=== PATIENT | female | born 1970 | race Caucasian/White ===

== ENCOUNTER 2016-12-16 05:17 | Inpatient (IN) | payer MEDICAID ==
[2016-12-15 16:10] LABS: BASOPHILS 0.3 % (0.0-2.0); EOSINOPHILS 0.5 % (0-7); HEMATOCRIT 38.9 % (36.0-48.0); HEMOGLOBIN 13.1 g/dL (12-16); IMMATURE GRANULOCYTES 0.2 % (0-5); LYMPHOCYTES 49.3 % (15-50); MCH 31.3 pg (26.0-34.0); MCHC 33.7 g/dL (31.0-37.0); MCV 93.1 fL (80.0-100.0); MEAN PLATELET VOLUME 9.7 fL (7.4-10.4); MONOCYTES 4.8 % (2-11); NEUTROPHILS 44.9 % (40-80); PLATELET COUNT 311 10x3/uL (130-400); RBC 4.18 10x6/uL (4.00-5.40); RDW 12.7 % (11.5-14.5); WBC 12.2 10x3/uL (4.8-10.8)
[2016-12-15 16:18] LABS: CALC OSMOLALITY 277 mosm/kg (275-300); CALCIUM 8.9 mg/dL (8.5-10.1); CHLORIDE - SERUM 104 mmol/L (98-107); CREATININE - SERUM 0.8 mg/dL (0.6-1.3); GLUCOSE 94 mg/dL (74-106); POTASSIUM - SERUM 4.1 mmol/L (3.5-5.1); SODIUM 140 mmol/L (136-145); UREA NITROGEN 9 mg/dL (7-18); eGFR NON AFRICAN AMERICAN 81 mL/min (90-120)
[2016-12-15 16:36] LABS: APPEARANCE CLEAR (CLEAR); BILIRUBIN NEGATIVE (NEGATIVE); COLOR YELLOW (YELLOW); GLUCOSE NEGATIVE (NEGATIVE); KETONE NEGATIVE (NEGATIVE); LEUKOCYTE ESTERASE NEGATIVE (NEGATIVE); NITRITE NEGATIVE (NEGATIVE); PROTEIN NEGATIVE (NEGATIVE); UROBILINOGEN NORMAL (NORMAL)
[2016-12-16] VITALS (11 sets, daily range): BP systolic 116–141; BP diastolic 73–97; Ht 162.6 cm; Wt 73.5 kg
[~2016-12-16] VITALS: Ht 162.6 cm; Wt 73.5 kg
[~2016-12-16 05:17] MED LIST: HYDROCODONE-APA1 TAB PO; NEURONTIN800 MG PO; ROBAXIN-750750 MG PO
[2016-12-16] MEDS ORDERED: MAXALT10 MG PO (06:17)
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
--- NOTE | 2016-12-16 11:15 | NUR ---
PT ARRIVED TO ICU VIA STRETCHER ACCOMPANIED BY RN. PT IS ALERT AND ORIENTED X 4. PT HAS DRSG CDI TO ANTERIOR PORTION OF NECK. PT HAS RUTHIE DRAIN TO LEFT NECK WITH SCANT BLOODY OUTPUT. PT ATTACHED TO MONITOR. ALL VSS. NEURO INTACT. PMS INTACT IN ALL EXTREMITIES. WILL MONITOR.
--- NOTE | 2016-12-16 12:42 | NUR ---
PT STATES SHE NEED TO PEE. PT PLACED IN SOFT C-COLLAR AND ASSISTED TO BEDSIDE COMMODE WITHOUT DIFFICULTY. NEURO CHECKS REMAIN INTACT. SOME SWELLING NOTED TO ANTERIOR NECK. RUTHIE DRAIN INTACT, OUTPUT IS BLOODY, ACCEPTABLE.
--- NOTE | 2016-12-16 13:57 | NUR ---
* Is the patient Alert and Oriented? Yes 0 * How many steps to enter\exit or inside your home? 2/RAIL 0 * PCP DR ESPINAL 0 * Pharmacy [facility] OR [facility] 0 * Preadmission Environment Home with Family 0 * ADLs Independent 0 * Equipment None 0 * List name and contact numbers for known caregivers / representatives who currently or will assist patient after discharge: S/O DAVID LUCAS [phone] 0 * Community resources currently utilized None 0 * Additional services required to return to the preadmission environment? No 0 * Can the patient safely return to the preadmission environment? Yes 0 * Has this patient been hospitalized within the prior 30 days at any hospital? No PATIENT STATES SHE LIVES AT HOME WITH HER S/O, DAVID. SHE STATES DAVID WILL DRIVE HER HOME AT DISCHARGE. SHE STATES HER PCP IS DR. ESPINAL. SHE STATES THAT SHE GETS HER MEDS FROM [facility] AND IF AFTER HOURS SHE GETS THEM FROM [facility]. PATIENT DENIES EVER HAVING HOME HEALTH AND DENIES USE OF ANY DME. PATIENT STATES THERE ARE 2 STEPS WITH A RAIL TO ENTER HER HOME. NO DISHCARGE NEEDS IDENTIFIED AT THIS TIME.
--- NOTE | 2016-12-16 17:05 | NUR ---
PT RESTS QUIETLY AT THIS TIME. NEURO REMAINS INTACT. PT USES SOFT COLLAR UPON AMBULATION. PT TOLERATING CLEAR LIQUIDS WELL. VSS.
--- NOTE | 2016-12-16 18:17 | NUR ---
PT IN TEARS C/O 10/10 LEFT SIDED NECK PAIN. WILL PROVIDED MORE PRN MEDICATIONS ALLOWED. NECK IS SUPPLE TO PALPATION, EVEN TO BOTH SIDES POSTERIOR AND ANTERIOR. LITTLE OUTPUT NOTED TO RUTHIE DRAIN. WILL MONITOR.
--- NOTE | 2016-12-16 19:00 | NUR ---
PT AOX4, PERRLA. STEADY GAIT, REPOSITIONS SELF INDEPENDENTLY. VSS, NO S/S OF ACUTE DISTRESS. NECK WITH DSG CDI, LT NECK WITH RUTHIE INTACT, MINIMAL BLOODY DRAINAGE PRESENT. VOICES NO NEEDS AT THIS TIME. CALL LIGHT AND BEDSIDE TABLE WITHIN PT REACH. CPOC.
--- NOTE | 2016-12-16 21:00 | NUR ---
FAMILY AT BEDSIDE, UPDATE GIVEN AND QUESTIONS ANSWERED. VSS.
--- NOTE | 2016-12-16 23:00 | NUR ---
REASSESSMENT COMPLETE, SEE FLOWSHEET FOR ALL FINDINGS. NO ACUTE CHANGES NOTED AT THIS TIME. VSS. FRESH WATER TO BEDSIDE. NECK DSG CDI. CALL LIGHT AND BEDSIDE TABLE WITHIN PT REACH. CPOC.
[2016-12-17] VITALS (7 sets, daily range): BP systolic 90–120; BP diastolic 51–74
--- NOTE | 2016-12-17 03:00 | NUR ---
REASSESSMENT COMPLETE, SEE FLOWSHEET FOR ALL FINDINGS. NO ACUTE CHANGES AT THIS TIME. PT SLEEPING QUIETLY WITH VSS. CALL LIGHT AND BEDSIDE TABLE WITHIN PT REACH. CPOC.
--- NOTE | 2016-12-17 05:00 | NUR ---
NO ACUTE CHANGES AT THIS TIME. VSS, PT AOX4. REPOSITIONS SELF INDEPENDENTLY. CALL LIGHT AND BEDSIDE TABLE WITHIN PT REACH. CPOC
--- NOTE | 2016-12-17 07:03 | OP ---
PATIENT NAME: DOMI IRVIN MEDICAL RECORD: [id number] :66 LOCATION:[facility] D.2312 ADMISSION DATE:12/16/16 SURGEON: ORLANDO DICKSON MD DATE OF OPERATION: 12/16/2016 PREOPERATIVE DIAGNOSIS: C4, C5 radiculopathy. POSTOPERATIVE DIAGNOSIS: C4, C5 radiculopathy. PROCEDURE PERFORMED: Anterior approach to the cervical spine for: 1. Anterior interbody arthrodesis with endplate preparation at C3-C4 and C4-C5. 2. Anterior plate fixation C3 through C5 with bilateral vertebral body screws. 3. Application of intervertebral biomechanical devices at C3-C4 and C4-C5. 3. Discectomy and bilateral foraminotomies at C3-C4 and C4-C5: 4. Use of intraoperative microscope with microdissection techniques. IMPLANTS: 1. Alphatec anterior cervical set. 2. Trestle Luxe plate 30 mm in length. 3. A 16-mm variable angle screws at C3 and C4 bilaterally. 4. A 16-mm fixed angle screws at C5 bilaterally. 5. An 8-mm medium PEEK cage packed with DBX allograft at C3-C4. 6. A 7-mm medium PEEK cage packed with DBX allograft at C4-C5. COMPLICATIONS: None apparent. FINDINGS: No changes in SSEP neuromonitoring throughout the procedure. SPECIMENS: None. COMPLICATIONS: None apparent. HISTORY OF PRESENT ILLNESS: Domi Irvin is a pleasant 46-year-old female, who presented as an outpatient with significant progressive symptoms consistent with C4 and C5 radiculopathy, which was refractory to conservative therapy. I had an extensive discussion with her regarding her imaging findings and her options for continued conservative therapy versus operative intervention as well as the risks and benefits of both courses of action. She ultimately decided to undergo operative intervention in the form of C3 through C5 ACDF, which was explained to her in detail including the intraoperative details as well as postoperative course. All of her questions were answered and she freely consented to go forward with the surgery. DESCRIPTION OF THE PROCEDURE: Domi Irvin was identified by the anesthesia team and transported to the operative theater. She was gently transferred over to a supine position on the operative table where general endotracheal anesthesia commenced and all appropriate lines and tubes were placed. A gel bump was placed underneath her scapula. Her head was placed in extension. Anterior neck was prepped and draped in the usual standard fashion. Using lateral fluoroscopy, an incision was localized. A timeout was performed prior to the initiation of the procedure and agreed to by those present. The patient did receive IV antibiotics as well as IV dexamethasone (10 mg) prior to the start of the procedure. Local anesthetic was infiltrated in the dermal space and a 10 blade was used to carry the level of incision down to the subcutaneous space. Bovie electrocautery was used to transect the platysma. The plane between the OPERATIVE REPORT [id number] DOMI IRVIN tracheoesophageal bundle medially and the carotid bundle laterally was identified and developed with blunt dissection. Curved Metzenbaum scissors were previously used to undermine the platysma rostrally and caudally. Curved Metzenbaum scissors were used to open the prevertebral fascia and further blunt dissection exposed the C4-C5 at C3-C4 disc spaces. These were confirmed on the lateral fluoroscopy. Low power Bovie electrocautery was used to clean off the inferior portion of the C3 vertebral body, the entire C4 vertebral body and the superior portion of C5 vertebral body as well as to elevate the longus colli bilaterally. Trimline self-retaining retractors were then seated deep to the longus colli, adjacent to the C3-C4 disc space. After the retractors were seated, the endotracheal cuff was let down and reinflated at a lower pressure. Square cut was made in the disc and pituitaries were used to perform initial discectomy. Hartford pins were placed under lateral fluoroscopy at C3 and C4 and the microscope was brought in the field. Gentle Hartford distraction was deployed and discectomy proceeded with a combination a lawrence elevator, curettes, Kerrison rongeurs and pituitary rongeurs. The PLL was taken down and bilateral foraminotomies were performed and found to be satisfactory when interrogated with a blunt nerve hooks. Surgiflo hemostatic matrix was used to control small amount of epidural hemorrhage, which was subsequently rinsed away and no further hemorrhage was appreciated. Ultimately, an 8 mm trial was placed at C3-C4 and found to be appropriate under fluoroscopy. Cage of the same size was packed with DBX allograft and inserted under lateral fluoroscopy to the appropriate position. Hartford pin at C3 was removed and the bony defect was filled with DBX allograft and no hemorrhage was appreciated. The Hartford pin was then placed at C5 under lateral fluoroscopy after the self-retaining retractors were reseated adjacent to the C4-C5 disc space. A square cut was made in the disc and initial discectomy performed. The Hartford distraction was then again used for gentle distraction. The C4-C5 discectomy and bilateral foraminotomies proceeded in the exact same sequence. PLL was again taken down and biforaminal decompression was confirmed with a blunt nerve hook. Small amount of epidural hemorrhage was controlled with Surgiflo hemostatic matrix and subsequently rinsed away with no further hemorrhage appreciated. A 7-mm trial was laid into place and found to be satisfactory under fluoroscopy. A same sized cage was subsequently packed with DBX allograft and then inserted under lateral fluoroscopy to the appropriate position. Hartford pins were sequentially removed with DBX allograft using to fill the bony defects. A 30 mm anterior cervical plate was then laid into place and found to be the appropriate size under fluoroscopy. Using the drill guide with a 10 mm drill, the C4 vertebral body drill tracks were developed and 16-mm variable angle screws were inserted under lateral fluoroscopy. The process was repeated at the C5 vertebral body with a 16-mm fixed angled screws. The same process was then repeated for C3 body with bilateral 16-mm variable angle screws being placed here. The screws were deep into the final position to activate the locking mechanism, which was double checked at all 3 levels to be deployed. Significant amount of irrigation was then irrigated into the operative tract. There was no significant hemorrhage. The self-retaining retractors were removed and again, the irrigation was used. Again, there was no significant hemorrhage appreciated. A 10-Uruguayan round drain was tunneled away from the incision, cut to size and laid over the plate. The platysma was reapproximated with interrupted 3-0 Vicryl sutures. The skin was reapproximated with a running subcuticular 4-0 Monocryl. The drain was sutured in place with a 3-0 Vicryl. The area was cleaned with a wet and dry dressing and Dermabond skin glue was placed over the incision. The patient was then returned to the anesthesia team for reversal and extubation. She tolerated the procedure well without any apparent complications. There were no changes in SSEP neuro monitoring throughout the procedure. All sponge and needle counts OPERATIVE REPORT [id number] DOMI IRVIN were correct times 2 at the end of the case. I did update the patient's family immediately postoperatively in the waiting room and all their questions were answered. TRANSINT:[id number] Voice Confirmation ID: [id number] DOCUMENT ID: [id number] ORLANDO DICKSON MD at 0703 CC: [id number] DICTATION DATE: 12/16/16 1003 RESISTANCE WELDING MACHINE OPERATOR: 12/16/16 1255 ADM IN [id number] [place] [address]
[2016-12-17] MEDS ORDERED: VALIUM5 MG PO (07:07)
[2016-12-17] MEDS ORDERED: HYDROCODON-ACE1 EAC7 PO (07:07)
--- NOTE | 2016-12-17 08:15 | NUR ---
0815- DC ORDERS NOTED, JESUS PAGED AND DID RECEIVE ORDERS TO DC RUTHIE DRAIN.
== END 2016-12-17 09:39 | disposition home or self-care (01) | DRG 473 ==
LOC: D.SDCHOLD 05:17 → D.ICU 05:17 → D.SDCHOLD 07:30 → D.ICU 10:52
PROVIDERS: ADMIT Neurological Surgery
PROC: 0RG20K0 Fusion of 2 or more Cervical Vertebral Joints with Nonautologous Tissue Substitute, Anterior Approach, Anterior Column, Open Approach (ICD-10-PCS; 2016-12-16)
PROC: 0RB30ZZ Excision of Cervical Vertebral Disc, Open Approach (ICD-10-PCS; 2016-12-16)
PROC: 0RG20A0 Fusion of 2 or more Cervical Vertebral Joints with Interbody Fusion Device, Anterior Approach, Anterior Column, Open Approach (ICD-10-PCS; principal; 2016-12-16 07:30)
DX: M50.121 Cervical disc disorder at C4-C5 level with radiculopathy (principal); F17.200 Nicotine dependence, unspecified, uncomplicated

== ENCOUNTER 2017-08-30 06:29 | Day surgery (SDC) | payer MEDICAID ==
[~2017-08-30 06:29] MED LIST changes: +BUPROPION HCL100 M1 PO; +HYDROCODON-ACE1 EAC7 PO; +MAXALT10 MG PO; +SKELAXIN800 MG PO; +VALIUM5 MG PO
[2017-08-30 07:41] LABS: HEMATOCRIT 37.7 % (36.0-48.0); HEMOGLOBIN 12.7 g/dL (12-16); MCH 31.4 pg (26.0-34.0); MCHC 33.7 g/dL (31.0-37.0); MCV 93.3 fL (80.0-100.0); MEAN PLATELET VOLUME 9.5 fL (7.4-10.4); RBC 4.04 10x6/uL (4.00-5.40); WBC 9.6 10x3/uL (4.8-10.8)
[2017-08-30 08:23] VITALS: BP 114/70; BMI 24.9
--- NOTE | 2017-08-30 17:13 | HP ---
PATIENT: DOMI GERMAN MEDICAL RECORD: [id number] ACCOUNT: [id number] LOCATION:D.[facility] : 66 ADMISSION DATE: 08/30/17 HISTORY AND PHYSICAL EXAMINATION Preoperative History and Physical HISTORY OF PRESENT ILLNESS: Domi is a 47-year-old female with a long history of chronic otitis media and draining perforation on the right ear. The drainage has recently cleared up after treatment. The perforation has been clean and dry for few months now. She is being admitted for right tympanoplasty. PAST SURGICAL HISTORY: Cervical fusion in December 2016. SOCIAL HISTORY: She is a smoker. CURRENT MEDICATIONS: Gabapentin, Wellbutrin, and [place]. ALLERGIES: TO COMPAZINE. PHYSICAL EXAMINATION: GENERAL: Healthy-appearing female, alert and oriented, developmentally normal. FACE: Normal, symmetric, no lesions. EYES: Sclerae and conjunctivae are normal. EARS: Left ear is normal. The right ear, she has got an anterior central TM perforation with some granular myringitis and mucosal changes on the lateral aspect of the TM around the perforation. NOSE: No mass, polyps or drainage. ORAL CAVITY AND OROPHARYNX: Tongue protrudes to midline. Pharynx is normal. NECK: No masses. No adenopathy. CHEST: Clear. CARDIOVASCULAR: Regular rate and rhythm. No murmur. EXTREMITIES: Normal. IMPRESSION: Right chronic tympanic membrane perforation. PLAN: Right tympanoplasty. TRANSINT:[id number] Voice Confirmation ID: [id number] DOCUMENT ID: [id number] KANDIS POSEY MD at 1713 CC: [id number] DICTATION DATE: 08/27/17917 PROFESSOR OF FLORICULTURE: 08/27/17 1036 [facility] 08/30/[id number] [place] [address]
--- NOTE | 2017-08-30 17:13 | OP ---
PATIENT NAME: SVETLANA GERMAN MEDICAL RECORD: [id number] :66 LOCATION:D[facility] ADMISSION DATE: SURGEON: NEGRO POSEY MD DATE OF OPERATION: 08/30/2017 PREOPERATIVE DIAGNOSIS: Right chronic otitis media with perforation. POSTOPERATIVE DIAGNOSIS: Right chronic otitis media with perforation. PROCEDURE: Right tympanoplasty. SURGEON: Negro Posey MD ANESTHESIA: General orotracheal. BLOOD LOSS: 1 cc. SPECIMENS: None. COMPLICATIONS: None. DISPOSITION: Recovery stable. DESCRIPTION OF PROCEDURE: She was brought to the operating room and placed in supine position, sedated and intubated by anesthesia. Head was turned to the left. The right ear was examined using a myringotomy set. The ear was cleaned with alcohol. The postauricular area was injected with 0.5 cc of 1% lidocaine with 1:100,000 epinephrine with a long 27-gauge needle. The canal was examined. Cerumen was cleaned with a curette and alligator forceps. The canal was injected with again less than 0.5 cc, 1% lidocaine with 1:100,000 epinephrine on a long 27-gauge needle. Some crusting was cleaned off the tympanic membrane. A straight pick was used to perforate the circumference of the perforation and removed. The epithelial lining of the perforation was cleaned up. It was rinsed with Betadine on suction and repeatedly irrigated with saline as the canal was cleaned up. Once that was done, the right face and ear were prepped and draped in the usual sterile fashion with Betadine. Then, a 15 blade was used to make an incision behind the right ear. This was taken down, graft was dissected out sharply with a 15 blade and a freer elevator. That was cleaned up and trimmed to size with the scissors and a 15 blade. The TM was again examined. The edges were cleaned up and the graft was positioned nicely. Once the graft was in position, the Gelfoam was packed on top of the tympanic membrane and soaked with some Floxin drops and the postauricular incision was closed with interrupted subcutaneous 5-0 Vicryl. A cotton ball was placed in the ear, she was awakened, extubated, and transported to recovery in good condition. No complications. TRANSINT:[id number] Voice Confirmation ID: [id number] DOCUMENT ID: [id number] OPERATIVE REPORT [id number] SVETLANA GERMAN ERIC MD at 1713 CC: [id number] DICTATION DATE: 08/30/17 1113 AIR HAMMER OPERATOR: 08/30/17 1201 [facility] 08/30/17 [address] [place] [address]
[2017-11-18] MEDS ORDERED: HYDROCODONE-APA1 TAB PO (11:55)
== END 2017-08-30 12:40 | disposition home or self-care (01) ==
LOC: D.OPS 06:29 → D.PAN 10:00 → D.OPS 10:00
PROVIDERS: Anesthesiology
DX: H66.91 Otitis media, unspecified, right ear (principal); H72.91 Unspecified perforation of tympanic membrane, right ear; F17.200 Nicotine dependence, unspecified, uncomplicated; Z98.1 Arthrodesis status; Z79.891 Long term (current) use of opiate analgesic; Z79.899 Other long term (current) drug therapy; Z88.8 Allergy status to other drugs, medicaments and biological substances; Z01.812 Encounter for preprocedural laboratory examination

== ENCOUNTER 2017-11-19 05:35 | Day surgery (SDC) | payer MEDICAID ==
[2017-11-18 12:40] LABS: HEMATOCRIT 37.9 % (36.0-48.0); MCH 32.3 pg (26.0-34.0); MCHC 34.3 g/dL (31.0-37.0); MCV 94.3 fL (80.0-100.0); MEAN PLATELET VOLUME 9.2 fL (7.4-10.4); RBC 4.02 10x6/uL (4.00-5.40); RDW 12.8 % (11.5-14.5); WBC 9.1 10x3/uL (4.8-10.8)
[~2017-11-19] VITALS: Ht 162.6 cm; Wt 66.2 kg
--- NOTE | ~2017-11-19 | OP ---
PATIENT NAME: SVETLANA IRVIN MEDICAL RECORD: [id number] :66 LOCATION:D.OPS ADMISSION DATE: SURGEON: IGNACIO WEN DO DATE OF OPERATION: 11/19/2017 PROCEDURE PERFORMED: Right shoulder arthroscopy with subacromial decompression and mini open biceps tenodesis and rotator cuff repair. PREOPERATIVE DIAGNOSES: Right shoulder rotator cuff repair, SLAP tear, and subacromial impingement. POSTOPERATIVE DIAGNOSES: Right shoulder rotator cuff repair, SLAP tear, and subacromial impingement. INDICATIONS: Ms. Irvin is a 47-year-old female whom I saw approximately 2 months ago in the clinic and she had an MRI, which showed the tear. She had shoulder pain for quite some time with weakness and problems with that. She had an MRI, which showed the tear and some degenerative changes of the labrum. This was explained to her that she would probably get it fixed. She wants to wait until after The First of Year to get it done, but it was up to her, so she decided to get it done today. DESCRIPTION OF PROCEDURE: The patient was given a block in the preoperative area by anesthesia and taken to the operative suite in left lateral recumbent position, axillary rolls placed into the axilla and she was given general anesthetic, 900 mg of clindamycin and intubated. Once this was done, the right upper extremity was prepped and draped in sterile fashion. A timeout was performed and everyone was in agreement of correct side, site, and patient. The procedure then commenced with injecting 60 mL of normal saline through the posterior portal into the shoulder joint itself. Then, the posterior portal was established. Trocar was entered into the shoulder joint and scope began. Anterior portal was then established. The rotator cuff tear on the supraspinatus was noted. Pictures were taken. The SLAP tear was also seen. On her MRI, it showed the biceps was subluxing due to partial tear of the subscapularis. This was seen, but not treated due to the fact that a majority of the subscapularis tendon was intact. In fact, there was some fraying on the bicep tendon as well. The bicep tendon was then tenotomized and the subacromial space was entered. Subacromial decompression was done after establishing a lateral portal. Then, we opened to do the rotator cuff repair. Greater tuberosity was burred down with the shaver in order to decorticate and get some bone bleeding in preparation for the tendon be repaired. Two anchors were then used right in the subchondral surface and were put through the tendon and then crossed and laid down, 1 anterior and 1 posterior and then the lateral row was placed, 1 anterior and 1 posterior. They were crossed and put down, seemed to have a very nice repair of the rotator cuff. The attention was then drawn to the bicep tendon. An incision was made just over the anterior humerus just below the pec insertion. Careful dissection was made down to the biceps tendon itself, was taken out of the skin and clamped with an Allis and then whipstitched. Once the whipstitch was done, the sutures ran through the button, a unicortical hole was made through the anterior humerus, the button was put into the hole and then flipped and the biceps tendon was cinched down using solid motion of the sutures. Then a free needle was used and one of the limbs of the sutures was put through the bicep tendon itself and tied down and the excess tendon and sutures were cut at that time. All the wounds were thoroughly irrigated. The anterior and posterior portals were closed with 4-0 Monocryl in OPERATIVE REPORT [id number] SVETLANA IRVIN inverted interrupted fashion. The deltoid fascia was closed with 0 Vicryl in a [id number] fashion just approximated. The skin was then closed with 2-0 Vicryl in inverted interrupted fashion and then a 4-0 Monocryl was run on the skin in subcuticular fashion. Dermabond was placed over each of the sites. Adaptic Telfa and Tegaderm were then placed over and the patient was placed in a sling, awakened, and taken to recovery in stable condition. Blood loss was minimal. COMPLICATIONS: None. TRANSINT:[id number] Voice Confirmation ID: [id number] DOCUMENT ID: [id number] IGNACIO WEN DO at 2052 CC: [id number] DICTATION DATE: 11/19/17928 HIDE TRIMMER: 11/19/17 1129 [facility] 11/19/17 [place] [address]
[2017-11-19 06:32] VITALS: BP 106/75; Ht 162.6 cm; Wt 66.2 kg
[2017-11-19] MEDS ORDERED: HYDROXYZINE HCL50 MG PO (09:23)
[2017-11-19] MEDS ORDERED: PERCOCET 10/3251 TA1 PO (09:23)
== END 2017-11-19 11:10 | disposition home or self-care (01) ==
LOC: D.OPS 05:35 → D.PAN 07:30 → D.OPS 07:30
PROVIDERS: Anesthesiology
DX: M75.101 Unspecified rotator cuff tear or rupture of right shoulder, not specified as traumatic (principal); S43.431A Superior glenoid labrum lesion of right shoulder, initial encounter; M75.41 Impingement syndrome of right shoulder; Z01.812 Encounter for preprocedural laboratory examination; X58.XXXA Exposure to other specified factors, initial encounter

== ENCOUNTER → 2018-06-29 17:23 | Outpatient (CLI) | payer MEDICAID ==
[2017-11-19 06:32] VITALS: BMI 25.1
[~2018-06-29 17:23] MED LIST changes: +HYDROXYZINE HCL50 MG PO; +PERCOCET 10/3251 TA1 PO
== END | disposition home or self-care (01) ==
LOC: D.MRI 07:30
DX: M25.511 Pain in right shoulder (principal)

== ENCOUNTER 2019-05-05 08:53 | Day surgery (SDC) | payer MEDICAID ==
[2019-05-04 14:57] LABS: HEMATOCRIT 38.1 % (36.0-48.0); HEMOGLOBIN 13.3 g/dL (12-16); MCH 31.5 pg (26.0-34.0); MCHC 34.9 g/dL (31.0-37.0); MCV 90.3 fL (80.0-100.0); MEAN PLATELET VOLUME 9.7 fL (7.4-10.4); RBC 4.22 10x6/uL (4.00-5.40); WBC 9.9 10x3/uL (4.8-10.8)
[~2019-05-05 08:53] MED LIST changes: +TRAZODONE HCL150 MG PO
[2019-05-05 09:51] VITALS: BP 98/60; BMI 26.1
[2019-05-05] MEDS ORDERED: AMOXICILLIN875 MG PO (10:00)
[2019-05-05] MEDS ORDERED: VISTARIL50 MG PO (14:44)
[2019-05-05] MEDS ORDERED: PERCOCET 10-321 EAC1 PO (14:44)
--- NOTE | 2019-05-05 16:20 | NUR ---
DISCHARGED HOME VIA WHEELCHAIR TO PRIVATE VEHICLE WITH SIGNIFICANT OTHER
--- NOTE | 2019-05-06 09:35 | OP ---
PATIENT NAME: SVETLANA IRVIN MEDICAL RECORD: [id number] :66 LOCATION:D.OPS ADMISSION DATE: SURGEON: IGNACIO WEN DO DATE OF OPERATION: 05/05/2019 PROCEDURE PERFORMED: Left shoulder arthroscopy with rotator cuff repair with subacromial decompression, distal clavicle excision, biceps tendinosis, and labral debridement. PREOPERATIVE DIAGNOSES: Left shoulder rotator cuff tear, SLAP tear, subacromial impingement, and AC joint arthritis. POSTOPERATIVE DIAGNOSES: Left shoulder rotator cuff tear, SLAP tear, subacromial impingement, and AC joint arthritis. INDICATIONS: Ms. Irvin is a 49-year-old female who has had left shoulder pain and weakness for quite some time. She had an MRI, which showed the above findings. She had the right shoulder done about 2 years ago. She was tired of dealing with the pain and the weakness in the left shoulder and wanted something done. She is aware of the risks including infection, bleeding, damage to nerves and vessels, need for further surgery, retear of the tendon and retear of the repair, continued pain and even and she signed the consent. SURGEON: Ignacio Wen DO DESCRIPTION OF PROCEDURE: The patient was given 900 mg of clindamycin preoperatively. She was blocked by anesthesia in the preoperative area and then taken to the operative suite, laid in the right lateral decubitus position well padded with axillary roll in the left shoulder up. Left shoulder was then prepped and draped in sterile fashion. A timeout was performed, everyone was in agreement as to the correct side, site, patient and procedure. The procedure began with inserting an 18-gauge spinal needle through the posterior portal site and then injecting 60 mL of normal saline into the joint. The portal site was then established with an 11-blade scalpel and the trocar entered into the joint. Camera was then entered and the SLAP tear was noted. The anterior portal was established with an 18-gauge spinal needle with both scalpel and trocar. The rotator cuff tear was seen also on the articular side. The inferior gutter was inspected. No loose body was seen. The cartilage looked good on the humerus and glenoid. Subscapularis tendon was in good repair. The biceps was then tenotomized by teresa and was brought into the anterior portal, and debridement of labrum was done at that time too. I then switched to the subacromial space. Lateral portal was established with an 18-gauge spinal needle and 11-blade scalpel and then the burner was brought in to clean out the acromion. The distal lateral acromion was removed, the spur layer and then through the anterior portal, the distal clavicle was removed as well, opening the AC joint, approximately 7 mm. The rotator cuff tear was then debrided and a shaver was brought in and decorticated the greater tuberosity of the humerus. We then opened and removed the scope and open the lateral portal enough to get down to the rotator cuff tear and the tear was exposed. First it was removed and 2 medial anchors were put in and the Scorpion was used to put the suture through the rotator cuff tendon and pulled over to 2 lateral row anchors making nice repair and reducing the tendon nicely to the greater tuberosity of the humerus. This site was then removed. The extra suture was then cut and a site was irrigated. The deltoid fascia closed with 2-0 Vicryl in a [id number] fashion and 2-0 Vicryl in interrupted fashion on the incision site, and 4-0 OPERATIVE REPORT [id number] SVETLANA IRVIN Monocryl ran on the skin. Then, attention was drawn to the anterior humerus. Incision was made over the anterior humerus and careful dissection was made down to the long head bicep tendon. This was pulled out through the incision and whipstitched and the button was put on to a whipstitch suture. A unicortical hole was placed in the humerus and the button placed in the hole. The tendon was cinched down to that and tied. Then, a free needle was used to go through the tendon and tied that down. Excess tendon and suture were then cut and that site was irrigated with normal saline and it was closed with 2-0 Vicryl in an inverted fashion, 4-0 Monocryl ran on the skin. The portal sites and the anterior and posterior were then closed with 4-0 Monocryl in inverted interrupted fashion. Dermabond was placed on Telfa and Tegaderm. The patient was then awakened and taken to recovery in stable condition. BLOOD LOSS: Minimal. She was placed in a sling. COMPLICATIONS: None. TRANSINT:[id number] Voice Confirmation ID: [id number] DOCUMENT ID: [id number] IGNACIO WEN DO at 0935 CC: [id number] DICTATION DATE: 05/05/19 1441 SCHEDULE PLANNING MANAGER: 05/05/192124 [facility] [place] 05/05/19 [id number] [place] [address]
== END 2019-05-05 16:20 | disposition home or self-care (01) ==
LOC: D.OPS 08:53 → D.PAN 13:30 → D.OPS 13:30
PROVIDERS: Anesthesiology; ATTEND Orthopaedic Surgery
DX: M75.102 Unspecified rotator cuff tear or rupture of left shoulder, not specified as traumatic (principal); S43.432A Superior glenoid labrum lesion of left shoulder, initial encounter; X58.XXXA Exposure to other specified factors, initial encounter; M75.42 Impingement syndrome of left shoulder; M13.812 Other specified arthritis, left shoulder; Z01.812 Encounter for preprocedural laboratory examination

== ENCOUNTER 2019-06-09 11:39 | Day surgery (SDC) | payer MEDICAID ==
[~2019-06-09] VITALS: Ht 162.6 cm; Wt 65.8 kg
[~2019-06-09 11:39] MED LIST changes: +AMOXICILLIN875 MG PO; +PERCOCET 10-321 EAC1 PO; +VISTARIL50 MG PO
[2019-06-09 12:03] LABS: HEMATOCRIT 34.8 % (36.0-48.0); MCH 31.3 pg (26.0-34.0); MCHC 34.5 g/dL (31.0-37.0); MCV 90.6 fL (80.0-100.0); MEAN PLATELET VOLUME 8.6 fL (7.4-10.4); RBC 3.84 10x6/uL (4.00-5.40); RDW 13.5 % (11.5-14.5); WBC 9.8 10x3/uL (4.8-10.8)
[2019-06-09] MEDS ORDERED: HYDROCODON-ACE1 EAC7 PO ×2 (13:19→17:03)
[2019-06-09 13:20] VITALS: BP 116/74; Ht 162.6 cm; Wt 65.8 kg
[2019-06-09] MEDS ORDERED: CIPRO500 MG PO (17:04)
--- NOTE | 2019-06-09 18:00 | NUR ---
REC'D FROM [facility]. DRESSING CDI TO RIGHT FOOT. FL DIET SERVED.
--- NOTE | 2019-06-09 18:45 | NUR ---
TOLERATED DIET. IV DC'D WITH CATHETER INTACT. WRITTEN AND VERBAL DC INST. GIVEN TO PT ALONG WITH RX. VERBALIZED UNDERSTANDING.
--- NOTE | 2019-06-09 19:00 | NUR ---
DC'D HOME WITH FAMILY VIA PRIVATE VEHICLE. STABLE AT TIME OF DC.
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
== END 2019-06-09 19:00 | disposition home or self-care (01) ==
LOC: D.OPS 11:39 → D.PAN 16:30 → D.OPS 16:30
PROVIDERS: Anesthesiology; ATTEND Orthopaedic Surgery
DX: S91.341A Puncture wound with foreign body, right foot, initial encounter (principal); W34.010A Accidental discharge of airgun, initial encounter; Z01.812 Encounter for preprocedural laboratory examination

== ENCOUNTER 2019-06-28 12:53 | Emergency (ER) | payer MEDICAID ==
[~2019-06-28] VITALS: Ht 162.6 cm; Wt 65.9 kg
[~2019-06-28 12:53] MED LIST changes: +CIPRO500 MG PO
[2019-06-28 12:55] VITALS: Ht 162.6 cm; Wt 65.9 kg
[2019-06-28 13:27] LABS: BASOPHILS 0.2 % (0-2); EOSINOPHILS 0.5 % (0-7); HEMATOCRIT 34.2 % (36.0-48.0); HEMOGLOBIN 11.9 g/dL (12-16); IMMATURE GRANULOCYTES 0.2 % (0-5); LYMPHOCYTES 38.8 % (15-50); MCH 31.4 pg (26.0-34.0); MCHC 34.8 g/dL (31.0-37.0); MCV 90.2 fL (80.0-100.0); MEAN PLATELET VOLUME 8.7 fL (7.4-10.4); MONOCYTES 7.1 % (2-11); NEUTROPHILS 53.2 % (40-80); PLATELET COUNT 309 10x3/uL (130-400); RBC 3.79 10x6/uL (4.00-5.40); RDW 13.3 % (11.5-14.5); WBC 8.5 10x3/uL (4.8-10.8)
[2019-06-28 13:41] LABS: ALBUMIN 3.8 g/dL (3.4-5.0); ANION GAP 12.2 mmol/L (8-16); BILIRUBIN - TOTAL 0.21 mg/dL (0.2-1.3); CALCIUM 8.9 mg/dL (8.5-10.1); CARBON DIOXIDE 27.3 mmol/L (21.0-32.0); MAGNESIUM - SERUM 1.9 mg/dL (1.8-2.4); POTASSIUM - SERUM 3.5 mmol/L (3.5-5.1)
[2019-06-28 14:35] LABS: UDS - AMPHET POSITIVE QUAL (NEGATIVE); UDS - BARB NEGATIVE QUAL (NEGATIVE); UDS - BENZO POSITIVE QUAL (NEGATIVE); UDS - COCAINE NEGATIVE QUAL (NEGATIVE); UDS - OPIATE POSITIVE QUAL (NEGATIVE); UDS - PCP NEGATIVE QUAL (NEGATIVE); UDS - THC POSITIVE QUAL (NEGATIVE)
[2019-06-28 14:42] LABS: APPEARANCE CLEAR (CLEAR); BILIRUBIN NEGATIVE (NEGATIVE); COLOR YELLOW (YELLOW); GLUCOSE NEGATIVE (NEGATIVE); KETONE NEGATIVE (NEGATIVE); NITRITE NEGATIVE (NEGATIVE); PROTEIN NEGATIVE (NEGATIVE); UROBILINOGEN NORMAL (NORMAL)
[2019-06-28 14:43] LABS: RED CELLS - URINE 0-5 /hpf (0-5); WHITE CELLS - URINE 0-5 /hpf (0-5)
[2019-06-28 14:44] LABS: BACTERIA MODERATE /hpf (NONE SEEN); EPITHELIAL CELLS 0-5 /hpf (0-5)
[2019-06-28] MEDS ORDERED: ZOLOFT50 MG PO (15:09)
[2019-06-28 15:18] VITALS: BP 140/65
== END 2019-06-28 15:18 | disposition home or self-care (01) ==
LOC: D.ER 12:53
PROVIDERS: Emergency Medicine
DX: F43.21 Adjustment disorder with depressed mood (principal); F41.9 Anxiety disorder, unspecified